=== PATIENT | male | born 1935 | race Caucasian/White ===

== ENCOUNTER → 2016-06-04 | Outpatient (CLI) | payer MEDICARE ==
[~2016-06-04] MED LIST: ASPI1TAB PO; CO Q200C PO; FLOM5CAP PO; JANU100T PO; METF1000 PO; PIOG30TA4 PO; PRESCAP PO; VENL75TA2 PO; ZOCO40TA PO
[2016-06-04 13:20] LABS: ANION GAP 7 MEQ/L (8-16); BLOOD UREA NITROGEN 18 MG/DL (7-18); CALCIUM LEVEL 10.1 MG/DL (8.8-10.2); CARBON DIOXIDE LEVEL 30 MEQ/L (21-32); CHLORIDE LEVEL 105 MEQ/L (98-107); CREATININE FOR GFR 1.18 MG/DL (0.70-1.30); GLOMERULAR FILTRATION RATE > 60.0 (>42); GLUCOSE, FASTING 96 MG/DL (83-110); POTASSIUM SERUM 4.7 MEQ/L (3.5-5.1); SODIUM LEVEL 142 MEQ/L (136-145)
[2016-06-04 13:24] LABS: COLLAGEN ADP 136 SECONDS (56-103)
--- NOTE | 2016-06-05 23:05 | ECGEPIP ---
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
== END ==
LOC: M LAB 11:26
PROVIDERS: ATTEND Ophthalmology
DX: Z01.818 Encounter for other preprocedural examination (principal); H25.12 Age-related nuclear cataract, left eye

== ENCOUNTER → 2016-06-06 | Day surgery (SDC) | payer MEDICARE ==
[~2016-06-06] VITALS: Ht 182.9 cm; Wt 99.8 kg
[~2016-06-06] MED LIST changes: +ACETYLCHOLINE OPHTH SOLN 1% 2ML As Ordered ONE; +ACETYLCHOLINE OPHTH SOLN 1% 2ML XX ONE; +AcetaZOLAMIDE 500 MG ER CAP PO ONE; +BALANCED SALT IRRIGATION SOL 500ML GLASS BOTTLE (FOR OR EYE COMPOUND) IR ONE; +BALANCED SALT IRRIGATION SOLUTION 500ML BAG (FOR OR EYE MACHINE) As Ordered ONE; +CEFUROXIME 1MG/0.1ML INTRACAMERAL INJ As Ordered ONE; +CEFUROXIME 1MG/0.1ML INTRACAMERAL INJ ICAM ONE; +CYCLOPENTOLATE 2% OPHTH SOLN As Ordered ONE; +CYCLOPENTOLATE 2% OPHTH SOLN OS ONE; +HEALON DUET (HEALON 10MG/ML 0.55ML & HEALON ENDOCOAT 30MG/ML 0.85ML) As Ordered ONE; +HEALON DUET (HEALON 10MG/ML 0.55ML & HEALON ENDOCOAT 30MG/ML 0.85ML) XX ONE; +LIDOCAINE 0.75%/EPINEPHRINE 0.025% IN BSS 1ML SYR INTRACAMERAL (OR ONLY) As Ordered ONE; +LIDOCAINE 1% SDV 5 ML VIAL XX ONE; +LIDOCAINE 4% INJ 5 ML AMP As Ordered ONE; +LIDOCAINE 4% INJ 5 ML AMP XX ONE; +MIDAZOLAM INJ 2 MG/2 ML VIAL (J2250) As Ordered ONE; +OFLOXACIN 0.3 % (OCUFLOX) OPTH SOL 5ML OS ONE; +PHENYLEPHRINE 2.5% OPHTH SOL 2ML OS ONE; +POVIDONE-IODINE 5% OPHTH PREP SOL 30ML As Ordered ONE; +PROPARACAINE 0.5% OPHTH SOL 15ML OS ONE; +TOBRADEX OPHTH OINT 3.5 GM As Ordered ONE; +TOBRADEX OPHTH OINT 3.5 GM XX ONE; +TRIAMCINOLONE PRES FR 40 MG/ML 1ML(TRIESENCE)(OR EYE ONLY)(J3300 PER 1MG) As Ordered ONE; +TROPICAMIDE 1% OPHTH SOLN 2 ML OS ONE; +fentaNYL 100 MCG/2 ML INJECTION (J3010) As Ordered ONE
[2016-06-06 11:52] VITALS: BP 131/70
--- NOTE | 2016-06-07 18:21 | RO ---
DATE OF PROCEDURE: 06/06/2016 PREOPERATIVE DIAGNOSIS: 1. Visually significant nuclear sclerotic cataract left eye. POSTOPERATIVE DIAGNOSES: 1. Visually significant nuclear sclerotic cataract left eye 2. Intraoperative floppy iris syndrome. PROCEDURES: 1. Complex cataract extraction with insertion of intraocular lens implant with use of iris hooks and implantation of ZCB00, 22.0 diopters. 2. Floppy iris syndrome. 3. Sub-Tenon injections. SURGEON: Tristian Zuniga DO EXPLOSION WELDER: None. ANESTHESIA: Local with monitored anesthesia care (MAC). FINDINGS: Cataract and floppy iris ESTIMATED BLOOD LOSS: 0. DRAINS: Zero. SPECIMEN: None. REPLACED: None. COMPLICATIONS: None. DESCRIPTION OF PROCEDURE: The patient was seen in the PACU and the correct eye was identified. The consents were reviewed and the correct eye was marked. The patient recieved topical dilating drops and antibiotics in the PACU to dilate the eye. The patient was then transferred to the operating room. The eye was prepped and draped in the sterile fashion. Two paracentesis incision were made with a 1.0mm blade. Preservative free shugarcaine was injected into the anterior chamber. Viscoelastic was injected into the anterior chamber to stabilize it and the eye was entered via 2.6mm temporal clear corneal incision. Use a bent 26g needle an incision was made in the anterior lens capsule. Using capsular forceps, a continuous curvilinear capsulorrhexis was created. Balanced salt solution was used to hydrodissect the nuclear lens. At this time , the iris was noted to be floppy and protruding through the primary incision. With the use of additional viscoelastic and an iris sweep, the iris was carefully repositioned into the appropriate position within the eye. Additional viscoelastic was used to maintain the iris in the appropriate position. The pupil was noted to be miotic and the decision to place 4 iris hooks was made. 4 additional paracentesis incisions were made and 4 iris hooks were placed showing a pupil size of approximately 7mm. At that time, the crystalline lens was phacoemulsified and aspirated completely and it was removed. Viscoelastic was used to inflate the capsular bag and a ZCB00 22.0 D lens was placed. It was confirmed in appropriate position by visualization of the anterior capsulorrhexis. Additional irrigation and aspiration was used to remove all viscoelastic. BSS was used to hydrate the primary incision and paracentesis wounds. The iris hooks were removed from the eye without difficulty, and miochol was placed in the eye, showing a moderately small pupil. Two 10-0 nylon sutures were placed in the main incision and an iris sweep was used to ensure that the iris was not incarcerated within the primary temporal incision. At this time, Triesence was used and 0.4 mL was injected in the inferotemporal sub-Tenon space, and the patient tolerated this well. Weck-Cels were used to check the intraocular pressure (IOP) which was found to be normal. The main incision and paracentesis incision were checked and found to be watertight. The eyelid speculum was carefully removed. Tobradex ointment was placed in the eye, and a patch and shield were placed over the left eye. Patient was discharged to the postanesthesia care unit (PACU) in stable condition. The patient then received 500 mg of Diamox by mouth upon arrival to the PACU and an additional 500 mg of Diamox approximately 1-1/2 hours after procedure, prior to discharge from the hospital. The patient was discharged in a stable condition. ROSETTE
--- NOTE | 2016-06-08 00:30 | RO ---
DATE OF PROCEDURE: 06/06/2016 PREOPERATIVE DIAGNOSIS: 1. Visually significant cataract left eye. 2. Use of Flomax. POSTOPERATIVE DIAGNOSIS: 1. Visually significant nuclear sclerotic cataract. 2. Floppy iris. PROCEDURE: 1. Complex cataract extraction left eye with intraocular lens implant with the use of iris hooks. Implant power is ZCB00 22.0 diopters. 2. Sub-Tenon injections. SURGEON: Tristian Zuniga DO FACILITY ENVIRONMENTAL TECHNICIAN: ANESTHESIA: Local with monitored anesthesia care (MAC). COMPLICATIONS: None. POSTOPERATIVE CONDITION: Stable. INDICATION FOR SURGERY: Blurred vision left eye affecting patient's activities of daily living. DESCRIPTION OF PROCEDURE: The patient was seen in the preoperative area and properly identified. The correct operative eye was identified and marked. Attention was turned to that eye. The patient received topical antibiotics in the preoperative area. The patient then received topical dilating drops consisting of tropicamide and phenylephrine. The patient was then transferred to the operating room. The correct side was reidentified. The patient received topical anesthetics and antibiotics on the surface of the eye. The eye was prepped and draped in a sterile fashion. The upper and lower eyelids were isolated with Tegaderm tape, and the lids were held open with an adjustable speculum. Using a sideport blade, a paracentesis incision was made. Intraocular preservative-free lidocaine was then injected into the anterior chamber. Viscoelastic was then injected into the anterior chamber through the paracentesis. Using a 2.75 mm sharp-tipped keratome, the anterior chamber was entered via a temporal clear corneal incision. A continuous curvilinear capsulorrhexis was created with the aid of a 26-gauge cystotome and Utrata forceps. Hydrodissection was performed with balanced salt solution (BSS) on a blunt cannula until the nucleus was freely mobile. The crystalline lens was phacoemulsified and aspirated. Additional cohesive viscoelastic was placed into the capsular bag to deepen it. A ZCB00 22.0 diopter lens was placed into the capsular bag and confirmed by visualizing the continuous curvilinear capsulorrhexis. Additional irrigation and aspiration was used to remove cortical material and remaining viscoelastic. The clear corneal incision was hydrated with BSS on a blunt cannula. The lens was well positioned. The incisions were then tested for leaks and found to be negative. The eye was then palpated for appropriate pressure and adjusted accordingly with BSS. Several drops of antibiotics and Iopidine were placed in the eye. The eyelid speculum was then carefully removed. Maxitrol ointment was placed in the eye. An eye patch and shield were then secured over the eye. The patient tolerated the procedure well and was discharged to the recovery unit in a stable condition. ROSETTE
== END | disposition home or self-care (01) ==
LOC: M SDC 07:41
PROVIDERS: ATTEND Ophthalmology
DX: H25.12 Age-related nuclear cataract, left eye (principal); H21.81 Floppy iris syndrome; E11.9 Type 2 diabetes mellitus without complications; Z79.82 Long term (current) use of aspirin; Z79.899 Other long term (current) drug therapy; E78.5 Hyperlipidemia, unspecified; F41.9 Anxiety disorder, unspecified; M06.9 Rheumatoid arthritis, unspecified; N40.0 Benign prostatic hyperplasia without lower urinary tract symptoms
CPT/HCPCS: 66982; 67515; J2250; J3010; J3300; V2632

== ENCOUNTER → 2019-03-10 | Outpatient (CLI) | payer MEDICARE ==
[~2019-03-10] MED LIST changes: -ACETYLCHOLINE OPHTH SOLN 1% 2ML As Ordered ONE; -ACETYLCHOLINE OPHTH SOLN 1% 2ML XX ONE; -ASPI1TAB PO; +ASPI81TA26 PO; -AcetaZOLAMIDE 500 MG ER CAP PO ONE; -BALANCED SALT IRRIGATION SOL 500ML GLASS BOTTLE (FOR OR EYE COMPOUND) IR ONE; -BALANCED SALT IRRIGATION SOLUTION 500ML BAG (FOR OR EYE MACHINE) As Ordered ONE; -CEFUROXIME 1MG/0.1ML INTRACAMERAL INJ As Ordered ONE; -CEFUROXIME 1MG/0.1ML INTRACAMERAL INJ ICAM ONE; -CO Q200C PO; +CO Q200C10 PO; +CRES10TA PO; -CYCLOPENTOLATE 2% OPHTH SOLN As Ordered ONE; -CYCLOPENTOLATE 2% OPHTH SOLN OS ONE; +FLOM0.4C39 PO; -FLOM5CAP PO; -HEALON DUET (HEALON 10MG/ML 0.55ML & HEALON ENDOCOAT 30MG/ML 0.85ML) As Ordered ONE; -HEALON DUET (HEALON 10MG/ML 0.55ML & HEALON ENDOCOAT 30MG/ML 0.85ML) XX ONE; -LIDOCAINE 0.75%/EPINEPHRINE 0.025% IN BSS 1ML SYR INTRACAMERAL (OR ONLY) As Ordered ONE; -LIDOCAINE 1% SDV 5 ML VIAL XX ONE; -LIDOCAINE 4% INJ 5 ML AMP As Ordered ONE; -LIDOCAINE 4% INJ 5 ML AMP XX ONE; -METF1000 PO; +METF10004 PO; -MIDAZOLAM INJ 2 MG/2 ML VIAL (J2250) As Ordered ONE; -OFLOXACIN 0.3 % (OCUFLOX) OPTH SOL 5ML OS ONE; -PHENYLEPHRINE 2.5% OPHTH SOL 2ML OS ONE; +PIOG1TAB37 PO; -PIOG30TA4 PO; -POVIDONE-IODINE 5% OPHTH PREP SOL 30ML As Ordered ONE; -PROPARACAINE 0.5% OPHTH SOL 15ML OS ONE; +SAW1CAP2 PO; -TOBRADEX OPHTH OINT 3.5 GM As Ordered ONE; -TOBRADEX OPHTH OINT 3.5 GM XX ONE; -TRIAMCINOLONE PRES FR 40 MG/ML 1ML(TRIESENCE)(OR EYE ONLY)(J3300 PER 1MG) As Ordered ONE; -TROPICAMIDE 1% OPHTH SOLN 2 ML OS ONE; +VITA-122 PO; +VITA100L PO; -fentaNYL 100 MCG/2 ML INJECTION (J3010) As Ordered ONE
--- NOTE | 2019-03-10 19:10 | REP ---
Left knee series: Five views. History: Pain. Findings: There is chondrocalcinosis medially and laterally. There is medial compartment narrowing. Mild patellofemoral spurring is seen. There is some nonarticular spurring on the patella anteriorly as well. Impression: Medial compartment osteoarthritic narrowing. Chondrocalcinosis. Patellofemoral spurring. Electronically Signed by Kvng Rowan MD 03/10/2019 07:18 P
== END ==
LOC: M WUC 11:24
PROVIDERS: ATTEND Internal Medicine
DX: M17.12 Unilateral primary osteoarthritis, left knee (principal); M11.262 Other chondrocalcinosis, left knee; M25.762 Osteophyte, left knee

== ENCOUNTER 2019-05-02 16:57 | Emergency (ER) | payer MEDICARE ==
[~2019-05-02] VITALS: Ht 182.9 cm; Wt 106.0 kg
[2019-05-02 17:32] LABS: BASO % 0.3 % (0.0-1.0); EOS # 0.1 10^3/uL (0.0-0.5); EOS % 1.1 % (0.0-3.0); HEMATOCRIT 44.5 % (42.0-52.0); HEMOGLOBIN 14.7 g/dl (13.5-17.5); LYMPH % 31.8 % (24.0-44.0); MEAN CORPUSCULAR HEMOGLOBIN 30.2 pg (27.0-33.0); MEAN CORPUSCULAR VOLUME 91.4 fl (80.0-96.0); MONO # 0.7 10^3/uL (0.0-0.8); MONO % 11.4 % (0.0-5.0); NEUTROPHILS # 3.5 10^3/uL (1.5-8.5); NEUTROPHILS % 55.1 % (36.0-66.0); PLATELET COUNT, AUTOMATED 211 10^3/uL (150-450); RED BLOOD COUNT 4.87 10^6/uL (4.30-6.10); WHITE BLOOD COUNT 6.4 10^3/uL (4.0-10.0)
[2019-05-02] MEDS ORDERED: GABA-1171 PO (17:36)
[2019-05-02 17:58] LABS: BLOOD UREA NITROGEN 24 MG/DL (7-18); CARBON DIOXIDE LEVEL 25 MEQ/L (21-32); CHLORIDE LEVEL 110 MEQ/L (98-107); CPK CREATINE PHOSPHOKINASE 522 U/L (39-308); CREATININE FOR GFR 1.19 MG/DL (0.70-1.30); GLOMERULAR FILTRATION RATE > 60.0 (>35); GLUCOSE, FASTING 130 MG/DL (70-100); LIPASE 104 U/L (73-393); MB/CK RELATIVE INDEX 3.45 (< OR =4); POTASSIUM SERUM 4.2 MEQ/L (3.5-5.1); SODIUM LEVEL 142 MEQ/L (136-145); TROPONIN I < 0.02 NG/ML (< 0.10)
[2019-05-02 18:16] LABS: INR 1.06; PROTHROMBIN TIME 13.5 SECONDS (11.8-14.0)
--- NOTE | 2019-05-02 18:36 | REP ---
Clinical: Chest pain. Comparison: None. Findings: Mediastinum and cardiac silhouette normal. Very subtle left basilar atelectasis/early infiltrate cannot be excluded and should be correlated with auscultation. No further consolidation. No effusion. No pneumothorax. Skeletal structures without acute process. Impression: Possible subtle left basilar atelectasis/early infiltrate. Electronically Signed by Vinicio Eugene MD 05/02/2019 06:28 P
--- NOTE | 2019-05-02 20:29 | ECGEPIP ---
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
[2019-05-02 21:47] LABS: CK-MB VALUE MASS 14.9 NG/ML (<3.6); CPK CREATINE PHOSPHOKINASE 471 U/L (39-308); MB/CK RELATIVE INDEX 3.16 (< OR =4); TROPONIN I < 0.02 NG/ML (< 0.10)
[2019-05-02] MEDS ORDERED: ASPIRIN 325 MG TAB PO ONE (22:30)
[2019-05-02 23:59] VITALS: BP 176/82
--- NOTE | 2019-05-03 06:36 | ECGEPIP ---
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
== END 2019-05-03 00:03 | disposition home or self-care (01) ==
LOC: M ED 16:57
DX: I20.0 Unstable angina (principal); I44.0 Atrioventricular block, first degree; I47.1 Supraventricular tachycardia; R91.8 Other nonspecific abnormal finding of lung field; E11.9 Type 2 diabetes mellitus without complications; I10 Essential (primary) hypertension; I63.9 Cerebral infarction, unspecified; Z79.82 Long term (current) use of aspirin; Z79.891 Long term (current) use of opiate analgesic; Z79.899 Other long term (current) drug therapy

== ENCOUNTER → 2022-05-26 | Outpatient (CLI) | payer MEDICARE ==
[~2022-05-26] MED LIST changes: +GABA-1171 PO; +LISI10TA22; +ROSU20TA5
== END ==
LOC: M LABSMTC 10:35
PROVIDERS: ATTEND Anesthesiology
DX: Z01.818 Encounter for other preprocedural examination (principal)

== ENCOUNTER 2022-05-30 06:10 | Day surgery (SDC) | payer MEDICARE ==
[~2022-05-30] VITALS: Ht 182.9 cm; Wt 95.3 kg
[~2022-05-30 06:10] MED LIST changes: +COQ-100C5 PO; +CYAN100050 PO; -LISI10TA22; +LISI10TA22 PO; +NS 1,000 ML IV ONE; -ROSU20TA5; +ROSU20TA5 PO; +VITA100093 PO; +VITA500C19 PO; +ZINC220CA PO; +[UNRECOGNIZED DRUG - OTHER] PO; +relief factor PO
[2022-05-30] MEDS ORDERED: LIDOCAINE 2% 100MG/5ML SDV (FOR ANES.) As Ordered ONE (07:19)
[2022-05-30] MEDS ORDERED: propofoL 200 MG/20 ML VIAL As Ordered ONE (07:19)
[2022-05-30 08:15] VITALS: BP 126/64
== END 2022-05-30 08:16 | disposition home or self-care (01) ==
LOC: M OPP 06:10
PROVIDERS: ATTEND Surgery
DX: Z12.11 Encounter for screening for malignant neoplasm of colon (principal); D12.6 Benign neoplasm of colon, unspecified; K63.5 Polyp of colon; Z79.02 Long term (current) use of antithrombotics/antiplatelets; Z79.82 Long term (current) use of aspirin; Z79.84 Long term (current) use of oral hypoglycemic drugs

== ENCOUNTER → 2023-10-06 | Outpatient (REF) | payer MEDICARE ==
[~2023-10-06] MED LIST changes: +CYAN-1 PO; -CYAN100050 PO; -NS 1,000 ML IV ONE; -ROSU20TA5 PO; +ROSU20TA61 PO; +SIMV-254 PO; -ZOCO40TA PO
[2023-10-06 12:33] LABS: ALBUMIN 3.5 G/DL (3.2-5.2); ALKALINE PHOSPHATASE 70 U/L (46-116); ALT/SGPT 29 U/L (7.0-40); AST/SGOT 22 U/L (<34); BILIRUBIN,TOTAL 0.8 MG/DL (0.3-1.2); BLOOD UREA NITROGEN 18 MG/DL (9-23); CALCIUM LEVEL 9.8 MG/DL (8.3-10.6); CARBON DIOXIDE LEVEL 28 MMOL/L (20-31); CHLORIDE LEVEL 105 MMOL/L (98-107); CHOLESTEROL LEVEL 166 MG/DL (<200); CHOLESTEROL RISK RATIO 3.61 (<5); CREATININE FOR GFR 1.07 MG/DL (0.70-1.30); GLOMERULAR FILTRATION RATE > 60.0 (>35); GLUCOSE, FASTING 146 MG/DL (74-106); HDL CHOLESTEROL 45.9 MG/DL (>40); LDL CHOLESTEROL 86.1 MG/DL (<100); NON-HDL-C 120.1 MG/DL; POTASSIUM SERUM 4.7 MMOL/L (3.5-5.1); SODIUM LEVEL 139 MMOL/L (136-145); TOTAL PROTEIN 7.1 G/DL (5.7-8.2); TRIGLYCERIDES LEVEL 170 MG/DL (<150)
[2023-10-06 12:37] LABS: HEMOGLOBIN A1c 6.7 % (4.0-6.0)
== END ==
LOC: M LABWUC 11:09
PROVIDERS: ATTEND Internal Medicine
DX: E78.5 Hyperlipidemia, unspecified (principal); E11.9 Type 2 diabetes mellitus without complications

== ENCOUNTER → 2024-01-12 | Outpatient (CLI) | payer MEDICARE ==
[2024-01-12 14:14] LABS: HEMOGLOBIN A1c 6.7 % (4.0-6.0)
[2024-01-12 14:21] LABS: ALBUMIN 3.7 G/DL (3.2-5.2); ALKALINE PHOSPHATASE 57 U/L (46-116); ALT/SGPT 33 U/L (7.0-40); AST/SGOT 29 U/L (<34); BILIRUBIN,TOTAL 0.6 MG/DL (0.3-1.2); BLOOD UREA NITROGEN 18 MG/DL (9-23); CALCIUM LEVEL 10.3 MG/DL (8.3-10.6); CARBON DIOXIDE LEVEL 27 MMOL/L (20-31); CHLORIDE LEVEL 108 MMOL/L (98-107); CHOLESTEROL LEVEL 119 MG/DL (<200); CHOLESTEROL RISK RATIO 2.72 (<5); CREATININE FOR GFR 1.15 MG/DL (0.70-1.30); GLOMERULAR FILTRATION RATE > 60.0 (>35); GLUCOSE, FASTING 133 MG/DL (74-106); HDL CHOLESTEROL 43.7 MG/DL (>40); LDL CHOLESTEROL 51.7 MG/DL (<100); NON-HDL-C 75.3 MG/DL; POTASSIUM SERUM 4.5 MMOL/L (3.5-5.1); SODIUM LEVEL 141 MMOL/L (136-145); TOTAL PROTEIN 7.2 G/DL (5.7-8.2); TRIGLYCERIDES LEVEL 118 MG/DL (<150)
== END ==
LOC: M WUC 09:35
PROVIDERS: ATTEND Internal Medicine
DX: E78.5 Hyperlipidemia, unspecified (principal); E11.9 Type 2 diabetes mellitus without complications